=== PATIENT | male | born 1975 | race Caucasian/White ===

== ENCOUNTER 2017-06-27 10:02 | Outpatient (CLI) | payer BC, OTHER | END 2017-06-27 10:03 | disposition home or self-care (01) | LOC: LAB.WCP 10:02 | PROVIDERS: ATTEND Physician Assistant Medical | DX: Z11.4 Encounter for screening for human immunodeficiency virus [HIV] (principal) | CPT/HCPCS: 87491; 87591 ==

== ENCOUNTER 2017-07-07 20:39 | Outpatient (CLI) | payer OTHER ==
--- NOTE | 2017-07-08 09:48 | Ultrasound Report ---
RIGHT UPPER QUADRANT ULTRASOUND: 07/07/2017 CLINICAL INDICATION: Elevated liver enzymes. TECHNIQUE: Real-time scanning was performed with customer support representative static images obtained. FINDINGS: The liver measures 15.7 cm. Hepatic echogenicity is increased, compatible with fatty infi ltration. No focal parenchymal lesion or intrahepatic biliary dilatation is present. The common umm e duct measures 3 mm. The gallbladder is normal. The right kidney measures 11.5 cm, and demonstrate s no hydronephrosis. No free fluid is present. IMPRESSION: FATTY INFILTRATION OF THE LIVER. JOB #: [id number] EXT JOB #:[id number]
== END 2017-07-07 20:40 | disposition home or self-care (01) ==
LOC: DI 20:39
PROVIDERS: ATTEND Physician Assistant Medical
DX: K76.0 Fatty (change of) liver, not elsewhere classified (principal)
CPT/HCPCS: 76705

== ENCOUNTER 2017-08-20 14:41 | Outpatient (CLI) | payer OTHER ==
[2017-08-20 19:42] LABS: ALBUMIN 4.7 g/dL (3.2-5.5); ALKALINE PHOSPHATASE 50 IU/L (42-121); ALT ALANINE AMINOTRANSFERASE 78 IU/L (10-60); AST ASPARTATE AMINOTRANSFERASE 37 IU/L (10-42); BILIRUBIN,TOTAL 0.6 mg/dL (0.2-1.0); TOTAL PROTEIN 7.9 g/dL (6.7-8.2)
[2017-08-20 19:45] LABS: BILIRUBIN,DIRECT < 0.1 mg/dL (0.1-0.5)
== END 2017-08-20 14:42 | disposition home or self-care (01) ==
LOC: LAB.WCP 14:41
PROVIDERS: ATTEND Physician Assistant Medical
DX: K76.0 Fatty (change of) liver, not elsewhere classified (principal); R74.8 Abnormal levels of other serum enzymes
CPT/HCPCS: 36415; 80076

== ENCOUNTER 2018-11-12 08:00 | Outpatient (CLI) | payer OTHER ==
[2018-11-12 13:19] LABS: ALBUMIN 4.5 g/dL (3.2-5.5); ALBUMIN/GLOBULIN RATIO 1.4 (1.0-2.2); BILIRUBIN,TOTAL 0.4 mg/dL (0.2-1.0); CALCIUM 9.3 mg/dL (8.5-10.3); CREATININE 1.1 mg/dL (0.6-1.2); TOTAL PROTEIN 7.8 g/dL (6.7-8.2)
[2018-11-13 11:26] LABS: HEPATITIS C ANTIBODY NON-REACTIVE (NON-REACTIVE)
== END 2018-11-12 23:59 | disposition home or self-care (01) ==
LOC: LAB.WCP 08:00
PROVIDERS: ATTEND Family Medicine
DX: K76.0 Fatty (change of) liver, not elsewhere classified (principal); R74.8 Abnormal levels of other serum enzymes
CPT/HCPCS: 36415; 80053; 84443; 86803

== ENCOUNTER 2018-12-29 09:16 | Outpatient (CLI) | payer OTHER | END 2018-12-29 09:17 | disposition home or self-care (01) | LOC: SC 09:16 | PROVIDERS: ATTEND Internal Medicine Pulmonary Disease | DX: G47.10 Hypersomnia, unspecified (principal); R06.81 Apnea, not elsewhere classified; R06.83 Snoring; R41.89 Other symptoms and signs involving cognitive functions and awareness; G47.8 Other sleep disorders | CPT/HCPCS: 99203; 99212 ==

== ENCOUNTER 2019-01-14 07:01 | Outpatient (CLI) | payer OTHER | END 2019-01-14 07:02 | disposition home or self-care (01) | LOC: SC 07:01 | PROVIDERS: ATTEND Internal Medicine Pulmonary Disease | DX: G47.10 Hypersomnia, unspecified (principal) | CPT/HCPCS: 95810 ==

== ENCOUNTER 2019-02-22 09:09 | Outpatient (CLI) | payer OTHER ==
--- NOTE | 2019-02-22 09:50 | CONSULTATION NOTE ---
Information from patient questionnaire entered by Tmami Morris. I have reviewed and concur with the information entered by Tammi Morris. This document represents the service I personally performed and the decisions made by me, Graciela Nassar MD, [facility]. - History of Present Illness HPI: Mr. Santiago returned for follow up of the sleep study he had on 01/14/2019. The polysomnography which was performed during the day to match the patients work schedule, showed that the patient had slightly reduced sleep efficiency due to a few awakenings after the sleep onset. The sleep architecture was abnormal for mild sleep fragmentation and reduced amount of time spent in slow wave sleep (N3). Respiratory monitoring showed no significant sleep disordered breathing (AHI = 0.4) or hypoxia (fauzia oxygen saturation of 92%). There were several respiratory related arousals during supine sleep (supine AHI = 0.9; non-supine = 0.26). Snore was light to moderate in intensity. There was no periodic leg movement of sleep. Cardiac rhythm was normal sinus rhythm without significant arrhythmia. No abnormal behavior (parasomnia) observed during the night. The patient was informed of these findings. I explained to him the sleep study was relatively normal. He does have some respiratory related arousals during the limited supine sleep. He says that he sleeps in all positions at home. Initial Vici Sleepiness Scale score: 13 Current Vici Sleepiness Scale score: 11 - Allergies/Medications Allergies and home medications reviewed: No - Review of Systems Review of systems same as previous: Yes - Impression 1. Primary Snore (ICD-10 R06.83), light to moderate, but no significant sleep disordered breathing except when the patient slept supine. The patient was recommended to avoid sleeping supine. 2. 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 Unfortunately, the treatment is to work regular hours. This problem worsens as the patient gets older. - Plan 1. Avoid sleeping supine. 2. Recommend day shift. 3. Return for follow up on as needed basis
== END 2019-02-22 09:10 | disposition home or self-care (01) ==
LOC: SC 09:09
PROVIDERS: ATTEND Internal Medicine Pulmonary Disease
DX: R06.83 Snoring (principal); G47.26 Circadian rhythm sleep disorder, shift work type
CPT/HCPCS: 99212; 99213